=== PATIENT | male | born 1970 | race Caucasian/White ===

== ENCOUNTER 2018-05-12 07:46 | Emergency (ER) | payer BC, SELFPAY ==
[2018-05-12 07:46] VITALS: BP 142/95; PULSE 69; RESP 14; TEMP 36.1; BMI 33.5
--- NOTE | 2018-05-12 08:08 | ED.VISSUMM ---
- ER Visit Summary Date of Service: 05/12/18 Chief Complaint: [Left lower abdominal pain] History of Present Illness: The patient is a 48 M [presents the emergency department with complaint of pain in his left lower abdomen that started this morning. Patient states that he was not feeling well and had some mild nausea last evening. This morning after a walk started feeling nauseated again and more discomfort to the lower left abdomen radiating to his left testicle. Patient denies any urinary symptoms with this. No significant discomfort and was back. Patient denies any fever. Patient is never had discomfort like this before. Patient states the pain waxes and wanes in intensity but currently rates it a 5 out of 10. Patient did vomit once on arrival to the emergency department.] Physical Examination: [HEENT-PERRLA, EOMI. Cranial nerves II through XII grossly intact. TMs clear. Mucous membranes moist. No adenopathy. Cardiovascular-regular rate and rhythm without murmur or ectopy Lungs-clear to auscultation, chest wall stable without crepitus or subcu emphysema Abdomen-normoactive bowel sounds, soft. Patient has tenderness to palpation over left lower quadrant with some guarding. There is no rebound, rigidity, or perineal signs. Patient has no CVA tenderness on exam. Extremities-intact ?4, normal range of motion, normal pulses, atraumatic] Test Results: [CBC with differential was normal. Chemistries were normal. Urinalysis showed 50-[address] flank showed a 4.8 mm calculus distal third of the left ureter with hydroureter and hydronephrosis.] Emergency Department Course and Treatment: [Patient was medicated with Toradol, morphine, and Zofran and had complete resolution of his pain.] Treatment Plan: [Patient will be given urine strainers as well as naproxen and [place]. Patient advised to follow-up with Dr. Bull who was on-call for urology and I will attempt to discuss case with.] Disposition: [Discharged home in stable condition]. Patient advised to return if worsening pain, fever, vomiting, or condition should worsen in any way. Impression: [Kidney stone with colic] This note was generated with [employer] dictation software. It may contain incorrect words, spelling, and punctuation that were not noted in review of the chart prior to signing ED Disposition - Plan for ED Patient: Chief Complaint: Flank Pain
[2018-05-12] MEDS: 0.9% Normal Saline 1,000 ML 125 ML IV (08:24)
[2018-05-12] MEDS: Ondansetron 4 MG/2 ML Vial IV (08:25)
[2018-05-12] MEDS: Morphine 4 MG/ML Syringe IV (08:26)
[2018-05-12] MEDS: Ketorolac 30 MG/ML Syringe IV (08:26)
[2018-05-12 09:08] LABS: Absolute Lymphocyte Count 1.63 X10^3/ul (0.83-4.51); Basophil# 0.02 X10^3/uL; Basophil% 0.3 % (0-1); Eosinophils% 1.6 % (0-5); Hematocrit 45.7 % (40-54); Lymphocyte # 1.63 X10^3/ul (4.0); Lymphocyte % 26.9 % (19-41); Mean Corp Hgb Conc 32.8 g/gl (32-36); Mean Corpuscular Hgb 29.2 pg (27.0-32.0); Mean Corpuscular Volume 89.1 fL (80-94); Mean Platelet Vol. 10.4 fl (6.2-12.0); Monocyte# 0.32 X10^3/uL; Monocyte% 5.3 % (0-10); Neutrophil % 65.9 % (47-70); Platelet Count 201 K/mm3 (150-450); RBC Distribution Width CV 12.7 % (11.6-14.6); RBC Distribution Width SD 41.2 fl (35.1-43.9); Red Blood Count 5.13 M/mm3 (4.6-6.2); White Blood Count 6.1 K/mm3 (4.4-11.0)
[2018-05-12 09:09] LABS: POSITIVE COUNT NO; POSITIVE DIFFERENTIAL NO; POSITIVE MORPHOLOGY NO
[2018-05-12 09:16] LABS: Anion Gap 9 (5-15); BUN 19 mg/dL (7-18); BUN/Creat Ratio 16.7 RATIO (10-20); Chloride 106 mmol/L (98-107); Creatinine, Serum 1.14 mg/dL (0.70-1.30); EST Glomerular Filtration Rate 72 mL/min (>60); Est Glom Filt Rate - Afr Amer 87 mL/min (>60); Estimated Creatinine Clearance 87.61 ml/min; Glucose 120 mg/dL (74-106); Potassium 4.1 mmol/L (3.5-5.1); Sodium Level 143 mmol/L (136-145)
[2018-05-12 10:13] LABS: Mucous, Urine 0 SEEN /hpf (<or=2+); Squamous Epithelial Cells - UA 0 SEEN /hpf (0-5); White Blood Cells 0 SEEN /hpf (0-5)
[2018-05-12 10:14] LABS: Color, Urine Yellow (Yellow); Glucose, Dipstick Normal (Normal); Ketone-Dipstick Negative (Negative); Leukocyte Esterase-Dipstick 25 /ul (Negative); Nitrite-Dipstick Negative (Negative); Occult Blood-Urine 250 /ul (Negative); Protein-Dipstick 30 mg/dl (Negative); Urine Bilirubin Dipstick Negative (Negative); Urine Clarity Cloudy (Clear); Urine Urobilinogen Normal (Normal)
[2018-05-12 10:20] LABS: Bacteria RARE /hpf (None Seen); Red Blood Cells-Urine 50-100 SEEN /hpf (0-5)
--- NOTE | 2018-05-12 10:31 | ED.DEP ---
ED Disposition - Plan for ED Patient: Chief Complaint: Flank Pain Instructions: ED Stone Renal W Colic Prescriptions: Hydrocodone/Acetaminophen [Steele 5-325 Tablet] 1 ea PO 4X/DAY PRN PRN 5 Days #20 tab PRN Reason: Pain Naproxen [Naprosyn] 500 mg PO BID PRN #20 tab Referrals: Arlette Dee MD [Primary Care Provider] - Jose Bull MD [STAFF PHYSICIAN] - 3-5 Days
[2018-05-12 11:05] VITALS: BP 135/76; PULSE 76; RESP 16; O2SAT 99
== END 2018-05-12 11:06 | disposition home or self-care (01) ==
LOC: ED 08:20
PROVIDERS: Emergency Provider Emergency Medicine; Family Provider Internal Medicine; PCP Internal Medicine
DX: N13.2 Hydronephrosis with renal and ureteral calculous obstruction (principal)
CPT/HCPCS: 74176; 80048; 81001; 85025; 96361; 96374; 96375; 99283; J7030; J2405

== ENCOUNTER 2020-12-12 17:54 | Outpatient (RCR) | payer BC, SELFPAY ==
[2020-12-12] MEDS: COVID-19 VACC, MRNA(PFIZER)/PF 30 MCG/0.3 ML SYRINGE IM (14:17)
[2021-01-02] MEDS: COVID-19 VACC, MRNA(PFIZER)/PF 30 MCG/0.3 ML SYRINGE IM (14:21)
== END 2020-12-12 23:59 ==
LOC: IMMUN 17:54
PROVIDERS: PCP Internal Medicine; Visit Provider Family Medicine
DX: Z23 Encounter for immunization (principal)
CPT/HCPCS: 0001A; 0002A; 91300

== ENCOUNTER → 2022-11-11 | Outpatient (CLI) | payer BC, SELFPAY ==
--- NOTE | 2022-11-11 06:38 | MRI_ITS ---
STUDY: MRI ORBITS WITH AND WITHOUT CONTRAST REASON FOR EXAM: Male, 52 years old. RT OPTIC ATROPHY, DECREASED VISION TECHNIQUE: Standardized multiplanar fat and water weighted pulse sequences were obtained. 22ML IV CLARISCAN was administered for the contrast portion of the examination. COMPARISON: None. FINDINGS: Normal bilateral globes. Mild atrophy is seen in the anterior half of the right optic nerve best appreciated on the axial T2 sequence 5 image 11/25. There is no demonstrated off the neuritis on the current study. Normal bilateral optic nerve sheath complexes and left optic nerve. Normal bilateral intraconal and extraconal spaces. Normal bilateral extraocular muscles. Normal optic chiasm and post-chiasmatic tracts. Normal sella turcica, pituitary gland, infundibular stalk, and hypothalamus. Normal bilateral cavernous sinuses. Normal tectal plate and pineal gland. Normal size of the ventricles and extra-axial spaces for the patient''s age. Normal white matter tracts of the supratentorial brain. Normal bilateral basal ganglia. Normal thalami. There is no extra-axial fluid accumulation. IMPRESSION: 1. Mild atrophy is seen in the anterior half of the right optic nerve best appreciated on the axial T2 sequence 5 image 11/25. There is no demonstrated off the neuritis on the current study. STUDY: MRI BRAIN WITH AND WITHOUT CONTRAST REASON FOR EXAM: Male, 52 years old. RT OPTIC ATROPHY, DECREASED VISION TECHNIQUE: Standardized multiplanar fat and water weighted pulse sequences were obtained. 22ML IV CLARISCAN was administered for the contrast portion of the examination. COMPARISON: None. FINDINGS: Normal size of the ventricles and extra-axial spaces for the patient''s age. Normal white matter tracts of the supratentorial brain. There is no evidence for recent intracranial ischemia or other cause of cytotoxic edema on diffusion weighted imaging (DWI). There are no demyelinating plagues of the supratentorial brain, brainstem or cerebellum. There are no findings suspicious for multiple sclerosis (MS). Normal T2* images of the brain without demonstrated susceptibility artifact. There is no demonstrated hemosiderin stain. Normal bilateral basal ganglia. Normal thalami. There is no extra-axial fluid accumulation. Normal flow voids within the major intracranial circulation suggesting patency by spin echo criteria. Normal venous enhancement. There is no enhancing intra-axial or extra-axial abnormality. There are no abnormal brain parenchymal lesions or signal abnormality or enhancement. There is no abnormal thickening or enhancement of the meninges or dura. No suspicious brain parenchymal or skull lesions are seen. Normal sella turcica, pituitary gland, infundibular stalk, optic chiasm and hypothalamus. Normal tectal plate and pineal gland. Normal midbrain, renata and medulla. Normal cerebellum. Normal basal cisterns. Normal bilateral temporal bones. Normal bilateral internal auditory canals. No demonstrated orbital abnormality, within the constraints of a routine brain study. Normal visualized paranasal sinuses. Normal calvarium and skull base. A small superior scalp cyst is present overlying the apex of the frontal bone . Normal visualized upper cervical spine. MRI/Brain W/WO Contrast IMPRESSION: Normal unenhanced and enhanced MRI of the brain. Electronically Signed: Agustin Mendoza MD at 8:36 EST ,
== END | disposition home or self-care (01) ==
PROVIDERS: PCP Internal Medicine; Referring Provider Ophthalmology; Visit Provider Ophthalmology
DX: H47.20 Unspecified optic atrophy (principal)
CPT/HCPCS: 70553; A9575